=== PATIENT | male | born 1950 | race Caucasian/White ===

== ENCOUNTER 2025-02-05 08:38 | Emergency (ER) | payer MEDICARE ==
[~2025-02-05] VITALS: Ht 185.4 cm; Wt 151.9 kg
[~2025-02-05 08:38] MED LIST: ALBU90AE INH; ATOR-429 PO; BUME1TAB8 PO; CARV6.253 PO; DOCU100C40 PO; EMPA10TA PO; FERR142T13 PO; LOSA-418 PO; METF-438 PO; NOR5T PO; SPIR50TA5 PO
[2025-02-05 08:51] VITALS: BP 124/67; PULSE 60; RESP 18; TEMP 97.9; O2SAT 100
== END 2025-02-05 09:50 | disposition home or self-care (01) ==
LOC: ER 08:38
DX: S90.922A Unspecified superficial injury of left foot, initial encounter (principal); E11.9 Type 2 diabetes mellitus without complications; X58.XXXA Exposure to other specified factors, initial encounter; Y93.89 Activity, other specified; Y92.89 Other specified places as the place of occurrence of the external cause; Y99.8 Other external cause status
CPT/HCPCS: 99281; A6258; A6402; A6446; A6449

== ENCOUNTER 2025-07-25 13:32 | Emergency (ER) | payer MEDICARE, MEDICAID ==
[~2025-07-25] VITALS: Ht 185.4 cm; Wt 158.0 kg
[~2025-07-25 13:32] MED LIST changes: +ASPI-1265 PO; +INSU300I3 SQ; +LACT1CAP26 PO; +NOVLG SQ
[2025-07-25 13:34] VITALS: TEMP 98.9
[2025-07-25] MEDS: piperacillin/tazo 3.375gm/50ml 50 ML IV ONE (16:01)
[2025-07-25 16:15] LABS: MEAN PLATELET VOLUME 9.0 FL (7.4-10.4); RED CELL DISTRIBUTION WIDTH 16.7 % (11.5-14.5)
[2025-07-25 16:22] LABS: CREATININE 1.49 MG/DL (0.60-1.10); TOTAL CARBON DIOXIDE 30.5 MMOL/L (24-32); eCRCL 49 ML/MIN; eGFR 46 ML/MIN
[2025-07-25] MEDS: VANCOMYCIN 2GM/400ML H20 (PEG) 400 ML IV ONE (16:37)
--- NOTE | 2025-07-25 16:40 | Physician Documentation ---
History of Present Illness ~ Chief Complaint: Wound Stated Complaint: WOUND CARE Time Seen by MD: 15:03 Source: patient Mode of Arrival: POV, Ambulatory Exam Limitations: no limitations HPI Patient who is in with a wound to the left heel. A year ago he had a spur removed with the elevator erector and has had a wound since that time. He is homeless but lives at a homeless group home. He does have access to wound care. He states that twice a week a nurse comes and cleans the wound and once a week he goes to a wound care clinic. He came here today because he has had worsening pain in the foot over the past week and the nurse felt like it looked infected so he came here for evaluation. He states his foot is more swollen. Tetanus within 5 years?: Yes Medication Reconciliation Allergies: Coded Allergies: No Known Allergies (Unverified , 07/03/25) Scheduled Amlodipine Besylate (Amlodipine Besylate), 10 MG PO DAILY Aspirin (Aspirin), 1 TAB PO DAILY Atorvastatin Calcium* (Lipitor*), 1 TAB PO DAILY, (Reported) Carvedilol (Carvedilol), 6.25 MG PO BID Empagliflozin (Jardiance), 1 TAB PO DAILY Insulin Glargine,Hum.rec.anlog (Toujeo Max Solostar), 15 UNITS SQ HS Lactobacillus Rhamnosus (Culturelle), 10,000 MMU PO BID Spironolactone (Spironolactone), 50 MG PO DAILY@0830 Scheduled PRN Albuterol Sulfate (Proair Respiclick), 2 PUFFS INH Q4HPRN PRN for shortness of breath Miscellaneous Medications Insulin Aspart (Novolog), SQ, (Reported) Discontinued Medications Bumetanide (Bumetanide), 1 TAB PO DAILY Discontinued Reason: patient no longer taking Docusate Sodium (Docusate Sodium), 100 MG PO BID Discontinued Reason: patient no longer taking Ferrous Sulfate (Slow Release Iron), 1 TAB.SR PO DAILY Discontinued Reason: patient no longer taking Levofloxacin (Levofloxacin), 1 TAB PO DAILY Discontinued Reason: Auto Discontinued Losartan Potassium (Cozaar), 1 TAB PO DAILY, (Reported) Discontinued Reason: patient no longer taking Metformin HCl (Metformin HCl), 1 TAB PO Q12H, (Reported) Discontinued Reason: patient no longer taking Past Medical History Past Medical History: Hernia, Diabetes Past Surgical History: orthopedic surgeries, other Patient History: Patient reports no known family medical history. Smoking Status: Former smoker Alcohol Use: None Drug Use: none Review of Systems All Other Systems at this time: Reviewed and Negative Physical Exam Vital Signs: Temperature: 98.9, Source: Temporal, Heart Rate: 58, Respiratory Rate: 16, BP: 96/55, Pulse Oximetry: 97, Weight: 158.000 Oxygen Flow Rate: 0 General Appearance: alert, WD/WN Neck: non-tender, full range of motion Cardiovascular: normal peripheral pulses, regular rate, rhythm Respiratory: lungs clear, no respiratory distress Chest: no accessory muscle use Extremities Left foot: Chronic ulcer of the left heel approximately 5 cm across across in 1 cm deep, does have granulation tissue, surrounding edema and the foot is hot to the touch compared to the right side. Neurologic: oriented x4 Psychiatric: normal mood/affect Progress Results/Orders Results/Orders Orders - MARIANO HUBBARD MD Culture Blood (07/25/25 15:14) Cult (Aer) Routine C&S+Gram St (07/25/25 15:21) Vancomycin 2gm/400ml H20 (Peg) (Vancomyc (07/25/25 15:25) Page Hospitalist (07/25/25 ) Cult Anaerobic (07/25/25 15:21) Completed Orders - MARIANO HUBBARD MD Cbc/Diff (07/25/25 15:14) Vancomycin*Pharmacy To Dose* (Vancomycin (07/25/25 15:15) Piperacillin/Tazo 3.375gm/50ml (Zosyn 3. (07/25/25 15:15) BMP (07/25/25 15:14) Lacticsepsis (07/25/25 15:14) Medications Received in ER Medications (Trade) Dose Ordered Sig/Mariam Route PRN Reason Start Time Stop Time Status Last Admin Dose Admin Piperacillin/ Tazobactam/ Dextrose 50 ml @ 100 mls/hr ONCE ONCE IV 07/25/25 15:15 07/25/25 15:44 DC 07/25/25 16:01 100 MLS/HR Vancomycin HCl 400 ml @ 134 mls/hr ONCE ONCE IV 07/25/25 15:25 07/25/25 18:24 07/25/25 16:37 134 MLS/HR Vital Signs 07/25/25 07/25/25 07/25/25 07/25/25 13:34 14:34 14:41 16:36 Temp 98.9 Pulse 61 57 58 Resp 16 14 16 16 B/P (MAP) 114/81 148/71 (96) 96/55 (69) Pulse Ox 94 96 97 O2 Flow Rate 0 0 0 Laboratory Tests Test 07/25/25 14:34 07/25/25 15:58 07/25/25 16:02 Glucometer 290 H White Blood Count 8.8 Red Blood Count 4.60 L Hemoglobin 13.7 L Hematocrit 40.5 L Mean Corpuscular Volume 88.2 Mean Corpuscular Hemoglobin 29.7 Mean Corpuscular Hemoglobin Concent 33.7 Red Cell Distribution Width 16.7 H Platelet Count 169 Mean Platelet Volume 9.0 Neutrophils (%) (Auto) 65.9 Lymphocytes (%) (Auto) 20.9 L Monocytes (%) (Auto) 6.6 Eosinophils (%) (Auto) 5.8 Basophils (%) (Auto) 0.8 Neutrophils # (Auto) 5.8 Lymphocytes # (Auto) 1.8 Monocytes # (Auto) 0.6 Eosinophils # (Auto) 0.5 Basophils # (Auto) 0.1 CBC Comment Lactic Acid Level 1.2 Sodium Level 138 Potassium Level 4.3 Chloride Level 101 Carbon Dioxide Level 30.5 Anion Gap 7 L Blood Urea Nitrogen 33 H Creatinine 1.49 H Estimated GFR/1.73 m2 46 BUN/Creatinine Ratio 22.1 H Glucose Level 265 H Calcium Level 9.1 Albumin 3.1 L Chemistry Comments Medical Decision Making Additional Comment Patient in with some edema that foot. Vital signs are stable. CBC and chemistry are normal. The hospitalist team did come down and look at the foot. They are very familiar with him and he has been on an extensive amount of antibiotics. At this time they do not want him on antibiotics though he did re ceive Zosyn and vancomycin in the ED. They felt he did not need admission at this time and to continue with his outpatient wound care. Discharged the patient home. He is to keep up with his wound care and return here if new or worsening symptoms. Wound and blood culture is pending. Departure Impression: Primary Impression: Chronic wound of extremity Condition: Stable Additional Instructions: Keep your appointments with your wound care team. Return if worsening of symptoms. Referrals: NO PRIMARY CARE PROVIDER (PCP) Education Educated: Patient Educated regarding: diagnosis, treatment, need for follow up Signature Scribe Signature: No scribe used Attestation: no scribe used MARIANO HUBBARD MD Jul 25, 2025 16:40
[2025-07-25 17:55] VITALS: BP 142/74; PULSE 59; RESP 16; O2SAT 98
[2025-07-28] MEDS ORDERED: SULF1TAB45 PO (16:45)
== END 2025-07-25 18:07 | disposition home or self-care (01) ==
LOC: ER 13:33
DX: L97.429 Non-pressure chronic ulcer of left heel and midfoot with unspecified severity (principal); E11.9 Type 2 diabetes mellitus without complications; Z59.01 Sheltered homelessness; Z87.891 Personal history of nicotine dependence
CPT/HCPCS: 36415; 80048; 82948; 83605; 85025; 87040; 87070; 87075; 87077; 87186; 96365; 96366; 96368; 99284; A6258; A6449; J2543; J3375